=== PATIENT | female | born 1995 | race Caucasian/White ===

== ENCOUNTER 2017-05-24 12:35 | Inpatient (IN) | payer MEDICAID ==
[2017-05-24] MEDS ORDERED: ONDANSETRON 4 MG/2 ML VIAL IVP ONE (13:25)
[2017-05-24] MEDS ORDERED: NS 1,000 ML IV ONE ×3 (13:25→14:36)
[2017-05-24 13:31] LABS: % IMMATURE GRANULYOCYTES 0.5 % (0.0-1.1); ABSOLUTE IMMATURE GRANULOCYTES 0.08 10^3/uL (0.00-0.10); ADD DIFF? NO; ADD MORPH? NO; ADD SCAN? NO; ATYPICAL LYMPHOCYTE FLAG 10 (0-99); FRAGMENT RBC FLAG 20 (0-99); HEMATOCRIT 37.1 % (38.0-47.0); HEMOGLOBIN 11.4 g/dL (12.6-16.3); LEFT SHIFT FLG 0 (0-99); LIPEMIA HEMOLYSIS FLAG 80 (0-99); MEAN CELL HEMOGLOBIN 24.7 pg (27.9-34.1); MEAN CELL HEMOGLOBIN CONCENTR. 30.7 g/dL (32.4-36.7); MEAN CELL VOLUME 80.3 fL (81.5-99.8); MEAN PLATELET VOLUME 12.2 fL (8.7-11.7); PLATELET CLUMPS FLAG 0 (0-99); PLATELET COUNT 444 10^3/uL (150-400); RED BLOOD CELL COUNT 4.62 10^6/uL (4.18-5.33); RED CELL DISTRIBUTION WIDTH 16.2 % (11.5-15.2)
[2017-05-24 13:37] LABS: ANION GAP 27 mEq/L (8-16); CHLORIDE 100 mEq/L (97-110); CREATININE 0.8 mg/dL (0.6-1.0); GLOMERULAR FILTRATION RATE > 60; GLUCOSE 451 mg/dL (70-100); SODIUM 133 mEq/L (134-144)
[2017-05-24 13:45] LABS: CARBON DIOXIDE 6 mEq/l (22-31)
--- NOTE | 2017-05-24 13:48 | EDPHY ---
H & P Time Seen by Provider: 05/24/17 13:12 HPI/ROS: CHIEF COMPLAINT: Nausea and dehydration HISTORY OF PRESENT ILLNESS: This 21-year-old woman presents with nausea and decreased appetite today. She has insulin-dependent diabetes and was doing well until this morning when she felt she had nausea and could only eat a single goldfish cracker. She has some myalgias and feels her bones hurt and decreased oral intake. Symptoms moderate but not associated with diarrhea or abdominal pain. Denies . Worse with oral intake. REVIEW OF SYSTEMS: Eye: no change in vision ENT: no sore throat Cardiac: no chest pain or syncope Pulmonary: no cough or SOB Abdomen: HPI Musculoskeletal: no back pain Skin: no rash Neuro: no headache Constitutional: no fever : no urinary symptoms A comprehensive 10 point review of systems is otherwise negative aside from elements mentioned in the history of present illness. PAST MEDICAL HISTORY: Insulin-dependent diabetes on pump Social history: Primary care provider in [facility] General Appearance: Alert and conversant, cooperative. Eyes: No scleral icterus. ENT, Mouth: Slightly dry mucous membranes Respiratory: Normal respiratory effort, breath sounds equal, lungs are clear to auscultation. Cardiovascular: Regular rate and rhythm. Gastrointestinal: Abdomen is soft and non tender. Neurological: Alert and oriented x3. Normally conversant. Face symmetric, normal movement and sensation in all extremities. Skin: Warm and dry, no rashes. Musculoskeletal: No peripheral edema and no joint swelling. Psychiatric: Not agitated. Emergency Department course/MDM: Normal saline 2 L IV and CBC and chemistries. 1437: Venous pH 7.1, DKA protocol initiated, discussed with hospitalist Dr. Dawson. 1530: Repeat glucose 320, insulin drip ongoing. Smoking Status: Never smoked Constitutional: Initial Vital Signs Temperature (C) 36.8 C 05/24/17 12:40 Heart Rate 104 H 05/24/17 12:40 Respiratory Rate 20 05/24/17 12:40 Blood Pressure 124/68 H 05/24/17 12:40 O2 Sat (%) 97 05/24/17 12:40 O2 Delivery Mode Room Air Allergies/Adverse Reactions: No Known Allergies Allergy (Verified 05/24/17 12:40) Home Medications: Medication Instructions Recorded Insulin Pump, Patient Own 1 ea MISC AD 05/24/17 Norgestimate-Ethinyl Estradiol 1 tab PO HS 05/24/17 [Trinessa Tablet] Sertraline HCl [Zoloft 50mg (*)] 100 mg PO HS 05/24/17 Medical Decision Making Differential Diagnosis: Differential for nausea considered including but not limited to metabolic abnormality, , urinary tract infection, gastroenteritis. Critical Care Time: Critical care time spent by me, Dr. Dodson, exclusively with the care of this patient was 30 minutes, exclusive of PA or WALNUT DEHYDRATOR OPERATOR time and exclusive of separate procedures. The organ system at risk was metabolic and I ordered IV normal saline was station, IV line, plastic discussion with hospitalist to stabilize the patient and prevent worsening of the patient's condition. - Data Points Laboratory Results: Laboratory Results 05/24/17 13:00 05/24/17 13:00 05/24/17 05/24/17 05/24/17 14:20 13:00 13:00 WBC RBC Hgb POC Hgb Hct POC Hct MCV MCH MCHC RDW Plt Count MPV Neut % (Auto) Lymph % (Auto) Cottle % (Auto) Eos % (Auto) Baso % (Auto) Nucleat RBC Rel Count Absolute Neuts (auto) Absolute Lymphs (auto) Absolute Monos (auto) Absolute Eos (auto) Absolute Basos (auto) Absolute Nucleated RBC Immature Gran % Immature Gran # VBG pH 7.10 L* (7.31-7.42) POC Sodium Sodium 133 mEq/L L mEq/L (134-144) POC Potassium Potassium 5.0 mEq/L mEq/L (3.5-5.2) POC Chloride Chloride 100 mEq/L mEq/L (97-110) Carbon Dioxide 6 mEq/l L* mEq/l (22-31) Anion Gap 27 mEq/L H mEq/L (8-16) POC BUN BUN 13 mg/dL mg/dL (7-23) Creatinine 0.8 mg/dL mg/dL (0.6-1.0) POC Creatinine Estimated GFR > 60 Glucose 451 mg/dL H mg/dL (70-100) POC Glucose Calcium 10.0 mg/dL mg/dL (8.5-10.4) Beta HCG, Qual NEGATIVE 05/24/17 05/24/17 13:00 12:54 WBC 15.55 10^3/uL H 10^3/uL (3.80-9.50) RBC 4.62 10^6/uL 10^6/uL (4.18-5.33) Hgb 11.4 g/dL L g/dL (12.6-16.3) POC Hgb 14.3 gm/dL gm/dL (12.6-16.3) Hct 37.1 % L % (38.0-47.0) POC Hct 42 % % (38-47) MCV 80.3 fL L fL (81.5-99.8) MCH 24.7 pg L pg (27.9-34.1) MCHC 30.7 g/dL L g/dL (32.4-36.7) RDW 16.2 % H % (11.5-15.2) Plt Count 444 10^3/uL H 10^3/uL (150-400) MPV 12.2 fL H fL (8.7-11.7) Neut % (Auto) 87.5 % H % (39.3-74.2) Lymph % (Auto) 9.2 % L % (15.0-45.0) Cottle % (Auto) 2.1 % L % (4.5-13.0) Eos % (Auto) 0.0 % L % (0.6-7.6) Baso % (Auto) 0.7 % % (0.3-1.7) Nucleat RBC Rel Count 0.0 % % (0.0-0.2) Absolute Neuts (auto) 13.60 10^3/uL H 10^3/uL (1.70-6.50) Absolute Lymphs (auto) 1.43 10^3/uL 10^3/uL (1.00-3.00) Absolute Monos (auto) 0.33 10^3/uL 10^3/uL (0.30-0.80) Absolute Eos (auto) 0.00 10^3/uL L 10^3/uL (0.03-0.40) Absolute Basos (auto) 0.11 10^3/uL H 10^3/uL (0.02-0.10) Absolute Nucleated RBC 0.00 10^3/uL 10^3/uL (0-0.01) Immature Gran % 0.5 % % (0.0-1.1) Immature Gran # 0.08 10^3/uL 10^3/uL (0.00-0.10) VBG pH POC Sodium 132 mEq/L L mEq/L (134-144) Sodium POC Potassium 4.6 mEq/L mEq/L (3.3-5.0) Potassium POC Chloride 104 mEq/L mEq/L (97-110) Chloride Carbon Dioxide Anion Gap POC BUN 13 mg/dL mg/dL (7-23) BUN Creatinine POC Creatinine 0.6 mg/dL mg/dL (0.6-1.0) Estimated GFR Glucose POC Glucose 420 mg/dL H mg/dL (70-100) Calcium Beta HCG, Qual Medications Given: Insulin Human Regular 100 unit / Miscellaneous Medication 1 ea/ Sodium Chloride 101 mls @ 7 mls/hr IV EDNOW ONE PRN Reason: Protocol Stop: 05/25/17 05:01 Last Admin: 05/24/17 15:02 Dose: 101 mls Discontinued Medications Sodium Chloride (Ns) 1,000 mls @ 0 mls/hr IV EDNOW ONE; Wide Open PRN Reason: Protocol Stop: 05/24/17 13:26 Last Admin: 05/24/17 13:39 Dose: 1,000 mls Sodium Chloride (Ns) 1,000 mls @ 0 mls/hr IV EDNOW ONE; Wide Open PRN Reason: Protocol Stop: 05/24/17 13:26 Last Admin: 05/24/17 13:40 Dose: 1,000 mls Sodium Chloride (Ns) 1,000 mls @ 0 mls/hr IV ONCE ONE; Wide Open PRN Reason: Protocol Stop: 05/24/17 14:37 Last Admin: 05/24/17 14:47 Dose: 1,000 mls Insulin Human Regular (Humulin R) 10 unit IVP EDNOW ONE Stop: 05/24/17 14:37 Last Admin: 05/24/17 14:47 Dose: 10 unit Ondansetron HCl (Zofran) 4 mg IVP EDNOW ONE Stop: 05/24/17 13:26 Last Admin: 05/24/17 13:40 Dose: 4 mg Point of Care Test Results: 05/24/17 12:54 POC Sodium 132 L POC Potassium 4.6 POC Chloride 104 POC BUN 13 POC Creatinine 0.6 POC Glucose 420 H Departure - Departure Disposition: [facility] Acute Clinical Impression: DKA (diabetic ketoacidoses) Qualifiers: Diabetes mellitus type: type 1 Diabetes mellitus complication detail: without coma Qualified Code(s): E10.10 - Type 1 diabetes mellitus with ketoacidosis without coma Condition: Serious
[2017-05-24] MEDS ORDERED: INSULIN REGULAR HUMAN 100 UNIT, COSIGN. REQUIRED 1 EA in NS 100 ML IV ONE (14:36)
[2017-05-24] MEDS ORDERED: INSULIN REGULAR HUMAN 100 UNIT/ML IVP ONE (14:36)
[2017-05-24] MEDS ORDERED: PROMETHAZINE HCL 25 MG/ML INJ IVP PRN (14:56)
[2017-05-24] MEDS ORDERED: ONDANSETRON DISINTEGRATING 4 MG TAB PO PRN (14:56)
[2017-05-24] MEDS ORDERED: ONDANSETRON 4 MG/2 ML VIAL IVP PRN (14:56)
--- NOTE | 2017-05-24 15:28 | GHP ---
[f rep st] HISTORY AND PHYSICAL DATE OF ADMISSION: 05/24/2017 HISTORY OF PRESENT ILLNESS: The patient is a 21-year-old female with type 1 diabetes x8 years, who presents with nausea, vomiting and hypoglycemia. Yesterday she felt well, maybe a bit of a sore thr oat. Her fiancee is a teacher at [employer] and the students have just returned. This morning she had some vomiting, was unable to eat, was hyperglycemic so she sought care. She has an insulin pump. It is relatively new because she had 1 [facility] She says it has been working well and she is not aware of any obvious pr oblems with the tubing or the sensor or the insertion site. It appears that she is well versed in a pump. She says her insulin is about a month old. She denies shortness of breath or cough, sputum. She has nausea and an episode of vomiting but no d iarrhea. No abdominal pain. No urgency frequency, dysuria. No painful areas on her skin. No STD like symptoms. REVIEW OF SYSTEMS: Complete 10-point review of systems conducted and negative except as noted in th e HPI. PAST MEDICAL HISTORY: 1. Type 1 diabetes. 2. Depression. ALLERGIES: No known drug allergies. HOME MEDICATIONS: 1. Humalog insulin by a pump. 2. control. 3. Zoloft. SOCIAL HISTORY: Rare alcohol. No tobacco. Lives in [facility]. FAMILY HISTORY: Reviewed and unremarkable. PHYSICAL EXAMINATION: PRESENTING VITALS: Temp 36.8, blood pressure 124/68, pulse 104, breathing 20 times a minute, 97% on room air. GENERAL: No acute distress. HEENT: Sclerae anicteric. Orophar ynx clear. Mucous membranes moist. NECK. Supple without lymphadenopathy or JVD. LUNGS: Clear to auscultation bilaterally. HEART: S1, S2 without murmurs. ABDOMEN: Soft, nontender, nondistended . LOWER EXTREMITIES: Without edema. Calves are nontender. SKIN: Without rash. NEUROLOGIC: Non focal. LABORATORY: Sodium 133, potassium 5, chloride 100, bicarb 6, BUN 13, creatinine 0.8, glucose 451. Calcium 10. Beta HCG negative. Her anion gap is elevated at 27. Venous pH 7.1. White count 15.5 with a left shift, hematocrit is 37.1, MCV is low at 80, platelets are 444,000. I have discussed the case with Dr. Frank Dodson. ASSESSMENT/PLAN: This is a 21-year-old female with diabetic ketoacidosis of uncertain trigger. 1. Diabetic ketoacidosis. We will start her on insulin drip. We will have her hold her insulin pu mp and we will follow her chem 7 q.4. 2. Trigger for diabetic ketoacidosis. I suspect viral gastroenteritis although it is not entirely clear. Next would be pump malfunction. Although this does not appear to obviously be the case. We will suspend her pump, provide her with IV insulin. When the gap is closed, we will restart her on insulin pump and overlap them by an hour. 3. Metabolic acidosis with an anion gap. This is attributable to diabetic ketoacidosis. 4. Microcytic anemia. I will order iron studies in the morning. 5. Diabetes. She has not had an A1c checked in a while so I will order that in the morning. It so unds like she has not followed up with an director recreation of late. I will encourage her to do so. DISPOSITION: ICU inpatient. PROPHYLAXIS: Lovenox. /[id number]/MODL
[2017-05-24 16:54] LABS: % SATURATION 8 % (20-55); TOTAL IRON BINDING CAPACITY 498 ug/dL (260-490)
[2017-05-24] MEDS ORDERED: D5W 1,000 ML IV SCH (18:16)
[2017-05-24] MEDS ORDERED: INSULIN REGULAR HUMAN 100 UNIT in NS 100 ML IV SCH (18:16)
[2017-05-24] MEDS ORDERED: D50W 25 GM/50 ML SYR IVP PRN ×2 (18:16→23:36)
[2017-05-24] MEDS ORDERED: INSULIN REGULAR HUMAN 100 UNIT/ML IVP PRN (18:16)
[2017-05-24] MEDS ORDERED: PROTOCOL POTASSIUM 1 DOSE MISC PRN (18:18)
[2017-05-24] MEDS ORDERED: PROTOCOL MAGNESIUM 1 DOSE IV PRN (18:18)
[2017-05-24 19:00] LABS: ANION GAP 21 mEq/L (8-16); CALCIUM 8.4 mg/dL (8.5-10.4); CHLORIDE 110 mEq/L (97-110); CREATININE 0.7 mg/dL (0.6-1.0); GLOMERULAR FILTRATION RATE > 60; GLUCOSE 173 mg/dL (70-100); POTASSIUM 4.7 mEq/L (3.5-5.2); SODIUM 139 mEq/L (134-144)
[2017-05-24 19:02] LABS: CARBON DIOXIDE 8 mEq/l (22-31)
[2017-05-24] MEDS: NORGESTIMATE ETHINYL ESTRADIOL PO SCH (20:35)
[2017-05-24] MEDS: SERTRALINE HCL 50 MG TAB PO SCH (20:36)
[2017-05-24 22:49] LABS: ANION GAP 10 mEq/L (8-16); CALCIUM 8.4 mg/dL (8.5-10.4); CARBON DIOXIDE 15 mEq/l (22-31); CHLORIDE 111 mEq/L (97-110); CREATININE 0.8 mg/dL (0.6-1.0); GLOMERULAR FILTRATION RATE > 60; GLUCOSE 210 mg/dL (70-100); POTASSIUM 4.2 mEq/L (3.5-5.2); SODIUM 136 mEq/L (134-144)
[2017-05-24] MEDS: NS 1,000 ML IV SCH (23:03)
[2017-05-24] MEDS ORDERED: D10W 250 ML PRN HYPOGLYCEMIA IV (23:36)
[2017-05-25] MEDS: ACETAMINOPHEN 325 MG TAB PO PRN ×2 (02:00→21:37)
[2017-05-25 04:55] LABS: CALCIUM 8.8 mg/dL (8.5-10.4); CHLORIDE 114 mEq/L (97-110); CREATININE 0.8 mg/dL (0.6-1.0); GLOMERULAR FILTRATION RATE > 60; POTASSIUM 3.7 mEq/L (3.5-5.2)
[2017-05-25 05:08] LABS: ANION GAP 10 mEq/L (8-16); CARBON DIOXIDE 14 mEq/l (22-31); GLUCOSE 127 mg/dL (70-100); SODIUM 138 mEq/L (134-144)
[2017-05-25 06:49] LABS: ANION GAP 5 mEq/L (8-16); CALCIUM 8.6 mg/dL (8.5-10.4); CARBON DIOXIDE 15 mEq/l (22-31); CHLORIDE 116 mEq/L (97-110); CREATININE 0.7 mg/dL (0.6-1.0); GLOMERULAR FILTRATION RATE > 60; GLUCOSE 65 mg/dL (70-100); MAGNESIUM 1.7 mg/dL (1.6-2.3); POTASSIUM 3.7 mEq/L (3.5-5.2); SODIUM 136 mEq/L (134-144)
[2017-05-25] MEDS ORDERED: MAGNESIUM SULF 1 GM/DEXTROSE 100 ML IV ONE (07:31)
[2017-05-25] MEDS: POTASSIUM Cl (KCl) 100 ML IV SCH ×2 (07:38→10:13)
[2017-05-25] MEDS: ENOXAPARIN 40 MG/0.4 ML SYR SC SCH (07:56)
[2017-05-25] MEDS ORDERED: INSULIN LISPRO 100 UNIT/ML SC ONE (08:14)
[2017-05-25] MEDS ORDERED: NON-FORMULARY NEW DRUG (Insulin Pump, Patient Own 1 EA) MISC SCH (08:15)
[2017-05-25] MEDS ORDERED: INSULIN PUMP MISC SCH (08:15)
[2017-05-25] MEDS: INSULIN LISPRO 100 UNIT/ML SC SCH ×3 (08:29→18:44)
[2017-05-25 08:55] LABS: HEMOGLOBIN A1C 10.9 % (4.0-6.0)
[2017-05-25 10:30] LABS: CALCIUM 8.2 mg/dL (8.5-10.4); CREATININE 0.6 mg/dL (0.6-1.0); GLOMERULAR FILTRATION RATE > 60; GLUCOSE 221 mg/dL (70-100)
[2017-05-25 10:44] LABS: ANION GAP 11 mEq/L (8-16); CARBON DIOXIDE 12 mEq/l (22-31); CHLORIDE 110 mEq/L (97-110); SODIUM 133 mEq/L (134-144)
--- NOTE | 2017-05-25 12:37 | HOSPPROG ---
Hospitalist Progress Note Assessment/Plan: 22 yo female from [place] visiting her fiance admitted for DKA. Doing better symptomatically and wants discharge today. We saw her during team rounds and the plan was to discharge if her repeat 10 am labs look better #DKA with acidosis #Type I DM #Likely Gastroenteritis #Anemai, microcytic. w/u pending Plan: Her repeat labs are c/w a CO2 of 12 which indicates worsening acidosis. I spoke with the nurse that given the acidosis and that her glucose is elevated in the 200's, I dont think that discharge is her best option. We will redraw a BMP this afternoon and make a decision. Will restart IVF. She has restarted her insulin pump this morning and has increased the amount of insulin that she has been providing herself. Her A1C is around 11. Total CCT 33 minutes including discussion/coordination with nurse. Subjective: Feels better and wants to go home. Objective: Vital Signs Temp Pulse Resp BP Pulse Ox 37.4 C 93 24 H 127/79 H 99 05/25/17 04:00 05/25/17 10:00 05/25/17 10:00 05/25/17 10:00 05/25/17 10:00 Laboratory Results 05/25/17 10:00 05/24/17 05/25/17 05/26/17 05:59 05:59 05:59 Intake Total 2597 Balance 2597 - Physical Exam Constitutional: no apparent distress, appears nourished, not in pain Eyes: PERRL, anicteric sclera, EOMI Ears, Nose, Mouth, Throat: moist mucous membranes, hearing normal, ears appear normal, no oral mucosal ulcers Cardiovascular: regular rate and rhythym, no murmur, rub, or gallop Respiratory: no respiratory distress Gastrointestinal: normoactive bowel sounds, soft, non-tender abdomen, no palpable masses Skin: warm Neurologic: AAOx3 Psychiatric: interacting appropriately, not anxious, not encephalopathic ICD10 Worksheet Patient Problems: Problems Problem Status Onset DKA (diabetic ketoacidoses) Acute
[2017-05-25 14:41] LABS: ANION GAP 12 mEq/L (8-16); CALCIUM 8.5 mg/dL (8.5-10.4); CARBON DIOXIDE 15 mEq/l (22-31); CHLORIDE 110 mEq/L (97-110); CREATININE 0.6 mg/dL (0.6-1.0); GLOMERULAR FILTRATION RATE > 60; GLUCOSE 197 mg/dL (70-100); POTASSIUM 4.3 mEq/L (3.5-5.2); SODIUM 137 mEq/L (134-144)
[2017-05-25] MEDS: NS 1,000 ML IV SCH ×2 (14:52→21:52)
[2017-05-25 21:09] LABS: POTASSIUM 3.6 mEq/L (3.5-5.2)
[2017-05-25] MEDS: SERTRALINE HCL 50 MG TAB PO SCH (21:29)
[2017-05-25] MEDS: NORGESTIMATE ETHINYL ESTRADIOL PO SCH (21:55)
[2017-05-26 08:42] VITALS: RESP 16
[2017-05-26] MEDS: INSULIN LISPRO 100 UNIT/ML SC SCH ×2 (09:14→12:15)
[2017-05-26] MEDS: ACETAMINOPHEN 325 MG TAB PO PRN (09:22)
[2017-05-26] MEDS: ENOXAPARIN 40 MG/0.4 ML SYR SC SCH (10:10)
[2017-05-26] MEDS: MAGNESIUM SULF 1 GM/DEXTROSE 100 ML IV ONE ×2 (10:14→15:52)
[2017-05-26 15:29] LABS: % IMMATURE GRANULYOCYTES 0.2 % (0.0-1.1); ABSOLUTE IMMATURE GRANULOCYTES 0.02 10^3/uL (0.00-0.10); ADD DIFF? NO; ADD MORPH? NO; ADD SCAN? NO; ATYPICAL LYMPHOCYTE FLAG 10 (0-99); FRAGMENT RBC FLAG 20 (0-99); HEMATOCRIT 30.3 % (38.0-47.0); HEMOGLOBIN 9.6 g/dL (12.6-16.3); LEFT SHIFT FLG 0 (0-99); LIPEMIA HEMOLYSIS FLAG 80 (0-99); MEAN CELL HEMOGLOBIN 24.8 pg (27.9-34.1); MEAN CELL HEMOGLOBIN CONCENTR. 31.7 g/dL (32.4-36.7); MEAN CELL VOLUME 78.3 fL (81.5-99.8); MEAN PLATELET VOLUME 11.9 fL (8.7-11.7); PLATELET CLUMPS FLAG 20 (0-99); PLATELET COUNT 336 10^3/uL (150-400); RED BLOOD CELL COUNT 3.87 10^6/uL (4.18-5.33); RED CELL DISTRIBUTION WIDTH 17.1 % (11.5-15.2)
[2017-05-26 15:43] LABS: ANION GAP 11 mEq/L (8-16); CALCIUM 8.8 mg/dL (8.5-10.4); CARBON DIOXIDE 19 mEq/l (22-31); CHLORIDE 108 mEq/L (97-110); CREATININE 0.6 mg/dL (0.6-1.0); GLOMERULAR FILTRATION RATE > 60; GLUCOSE 100 mg/dL (70-100); POTASSIUM 3.6 mEq/L (3.5-5.2); SODIUM 138 mEq/L (134-144)
[2017-05-26 15:52] VITALS: BP 140/95; PULSE 85; TEMP 98.3; O2SAT 97
--- NOTE | 2017-05-26 17:06 | GDS ---
[f rep st] DISCHARGE SUMMARY KNOWN ACUTE DIAGNOSES: 1. Acute diabetic ketoacidosis. 2. Metabolic acidosis with anion gap contributed to ketoacidosis. 3. Microcytic anemia. 4. Diabetes mellitus type 1 x10 years. CONSULTATIONS: None. PROCEDURES: None. HISTORY: This is a 22-year-old whose insulin may have gone bad due to excessive heat. She has an in sulin pump and was traveling from [place] to [place] to see her boyfriend. She developed nausea, vomiting, and was noted to be in DKA with a ketoacidosis on presentation. She was treated with IV f luids and IV insulin. She had an initial venous lactate of 7 and an anion gap of 27. She was tachyp neic, tachycardic, but never hypotensive. She responded well to insulin, fluids, and as her acidosis resolved she again resumed the use of her insulin pump, which she has had for 4 years. At the time of discharge, she was resolving or acidosis. Her ion gap had closed. The venous lactate was 3.5, an d her hemoglobin was 9.6. She was afebrile. DISCHARGE MEDICATIONS: Will be the same as her admission medications as follows: An insulin pump wh ich she uses between 24 and 29 units a day, Zoloft 100 mg h.s., control pills taken once each e vening. PLAN: She is released to her own care on an ADA diet and use of her insulin pump, which she understa nds quite well. She has been instructed if she has further difficulties to come to the emergency dep artment as she is not a resident of [place] and will not be staying here long. TIME: This discharge required 40 minutes, greater than 50% to corrections counselor and coordinate care. I corby burgess reviewed the laboratories with the patient and explained the matter to her. /[id number]/MODL
--- NOTE | 2017-05-29 17:05 | ASMTCMCOM ---
CM Note CM Note Notes: No needs identified, anticipate alecia dc home w/support of fiance when medically stable. CM available for any changes. Date Signed: 05/26/2017 03:19 PM Electronically Signed By:Jacinta Olivarez
--- NOTE | 2017-05-29 17:05 | ASMTCMCOM ---
CM Note CM Note Notes: Coworker received call from Jasper from [facility] regarding pt and asking for CM. CM asked pt if she knew what [employer] was and pt did not. Date Signed: 05/26/2017 04:17 PM Electronically Signed By:Jacinta Olivarez
--- NOTE | 2017-05-29 17:06 | ASDISCHSUM ---
Discharge Information Plan Status:Home with Home Health Medically Cleared to Leave:05/26/2017 Discharge Date:05/26/2017 04:41 PM CM D/C Disposition:Home, Routine, Self-Care ADT D/C Disposition:Home, Routine, Self-Care Projected Discharge Date:05/26/2017 12:00 AM Transportation at D/C: Discharge Delay Reason: Follow-Up Date:05/26/2017 12:00 AM Discharge Slot: Final Diagnosis: Placement Information Patient Contact Information Contact Name:MARCUS Relationship:Other Address: Work Phone: City: [facility] Phone: State/Realitycheck Code: Email: Financial Information Financial Class: Primary Plan Desc:EVERARDO ALVARES Primary Plan Number:[id number] Secondary Plan Desc: Secondary Plan Number: Assessment Information [facility] CM Progress Note CM Note CM Note Notes: No needs identified, anticipate [facility] w/support of colby when medically stable. CM available for any changes. Date Signed: 05/26/2017 03:19 PM Electronically Signed By:Jacinta Olivarez [facility] CM Progress Note CM Note CM Note Notes: Coworker received call from Jasper from [email or web address] regarding pt and asking for CM. CM asked pt if she knew what [email or web address] was and pt did not. Date Signed: 05/26/2017 04:17 PM Electronically Signed By:Jacinta Olivarez Intervention Information
== END 2017-05-26 16:41 | disposition home or self-care (01) | DRG 639 ==
LOC: F2N 17:37 → F3E 05-25 17:15
PROVIDERS: ADMIT Internal Medicine; ATTEND Internal Medicine
DX: E13.10 Other specified diabetes mellitus with ketoacidosis without coma (principal); Z79.4 Long term (current) use of insulin; Z96.41 Presence of insulin pump (external) (internal); D50.9 Iron deficiency anemia, unspecified
CPT/HCPCS: 82947-QW; 96374; J1650; J1815; J2405; J3475

== ENCOUNTER 2018-02-17 23:22 | Observation (INO) | payer SELFPAY ==
[2018-02-17] MEDS ORDERED: NS 1,000 ML IV ONE (23:50)
[2018-02-17 23:54] LABS: PLATELET COUNT 491 10^3/uL (150-400)
[2018-02-18] MEDS ORDERED: D50W 25 GM/50 ML SYR IVP PRN ×2 (00:23→02:30)
[2018-02-18] MEDS ORDERED: INSULIN REGULAR HUMAN 100 UNIT, COSIGN. REQUIRED 1 EA in NS 100 ML IV ONE (00:23)
[2018-02-18] MEDS ORDERED: D10W 1,000 ML IV ONE (00:23)
--- NOTE | 2018-02-18 00:42 | EDPHY ---
H & P Stated Complaint: ? DKA Time Seen by Provider: 02/18/18 00:17 HPI/ROS: HPI The patient presents with elevated blood glucose at home. Last check was over 600 on her home glucometer just before arriving here. For the last 1 week, blood glucoses have been in the 300s. Then today she awoke with polyuria, urinating twice per hour. She went to work, and when she returned home checked her blood sugar and it was elevated, thus she came to the emergency department. She has been feeling generally dizzy and nauseated over the last few days. Her diet has remained unchanged. She has had increased thirst. She has not had a fever, chest pain, cough, runny nose, abdominal pain. REVIEW OF SYSTEMS Constitutional: No fever, no chills. Eyes: No discharge. ENT: No sore throat. Cardiovascular: No chest pain, no palpitations. Respiratory: No cough, no shortness of breath. Gastrointestinal: No abdominal pain, no vomiting. Genitourinary: No hematuria. Musculoskeletal: No back pain. Skin: No rashes. Neurological: No headache. PMHx: Diabetes on insulin, episode of DKA in May of 2017 Soc Hx: From [place] and has her primary care doctor there. She has not followed by an optimization engineer PHYSICAL General Appearance: Alert, no distress Eyes: Pupils equal and round no pallor or injection ENT, Mouth: Mucous membranes slightly dry Respiratory: There are no retractions, lungs are clear to auscultation Cardiovascular: Regular rate and rhythm Gastrointestinal: Abdomen is soft and non-tender, no masses, bowel sounds normal Neurological: A&O, moves all extremities Skin: Warm and dry, no rashes Musculoskeletal: Neck is supple non tender Extremities: symmetrical, full range of motion Psychiatric: Patient is oriented X 3, there is no agitation Source: Patient Exam Limitations: No limitations - Personal History LMP (Females 10-55): 1-7 Days Ago Current Tetanus/Diphtheria Vaccine: Yes Current Tetanus Diphtheria and Acellular Pertussis (TDAP): Yes Tetanus Vaccine Date: 2014 - Medical/Surgical History Hx Asthma: No Hx Chronic Respiratory Disease: No Hx Diabetes: Yes Hx Cardiac Disease: No Hx Renal Disease: No Hx Cirrhosis: No Hx Alcoholism: No Hx HIV/AIDS: No Hx Splenectomy or Spleen Trauma: No Other PMH: PDA 11months of age, Anxiety, IDDM-on pump. - Social History Smoking Status: Never smoked Constitutional: Initial Vital Signs Temperature (C) 36.6 C 02/17/18 23:24 Heart Rate 121 H 02/17/18 23:24 Respiratory Rate 16 02/17/18 23:24 Blood Pressure 121/90 H 02/17/18 23:24 O2 Sat (%) 98 02/17/18 23:24 O2 Delivery Mode Room Air Allergies/Adverse Reactions: No Known Allergies Allergy (Verified 05/24/17 12:40) Home Medications: Medication Instructions Recorded Insulin Pump, Patient Own 1 ea MISC AD 05/24/17 Norgestimate-Ethinyl Estradiol 1 tab PO HS 05/24/17 [Trinessa Tablet] Sertraline HCl [Zoloft 50mg (*)] 100 mg PO HS 05/24/17 Medical Decision Making Differential Diagnosis: This is a 22-year-old female with type 1 diabetes using an insulin pump who presents with elevated blood glucose to greater than 600 at home tonight with polyuria, dizziness, nausea. She suspects that her insulin pump is not delivering enough insulin. Systemically, she denies any complaints to suggest infection, ACS. IV line was established, labs were checked here which do indeed reveal DKA with anion gap of 23 and CO2 of 9. She was started on the DKA protocol with insulin drip. I consulted with the hospitalist Dr. Rice who will admit her to the ICU. Critical Care Time: CRITICAL CARE Critical care time spent by me, Dr. Ortiz, exclusively with this patient was 30 minutes, exclusive of PA time and exclusive of procedures. The organ system at risk was cardiac, neuro and I gave IV fluids, started insulin drip, emergently transfer the patient to the ICU to prevent worsening of the patients condition. - Data Points Laboratory Results: Laboratory Results 02/17/18 23:39 02/18/18 01:04 02/18/18 02/18/18 02/18/18 01:04 01:04 00:30 WBC RBC Hgb Hct MCV MCH MCHC RDW Plt Count MPV Neut % (Auto) Lymph % (Auto) Walker % (Auto) Eos % (Auto) Baso % (Auto) Nucleat RBC Rel Count Absolute Neuts (auto) Absolute Lymphs (auto) Absolute Monos (auto) Absolute Eos (auto) Absolute Basos (auto) Absolute Nucleated RBC Immature Gran % Immature Gran # Puncture Site NONE GIVEN Patient Temperature 37.0 DEGREES DEGREES VBG pH 7.29 L (7.31-7.42) VBG HCO3 14 mEQ/L L mEQ/L (22-26) VBG Total CO2 15 mEq/L L D mEq/L (21-27) VBG O2 Saturation 91 % H % (65-75) VBG Base Excess -11.2 mEq/L L mEq/L (-2.5-2.5) Mixed VBG pCO2 31 mmHg L mmHg (40-44) Mixed VBG pO2 70 mmHg H mmHg (35-40) Turbidity Sodium 137 mEq/L mEq/L (135-145) Potassium 4.5 mEq/L mEq/L (3.3-5.0) Chloride 107 mEq/L mEq/L (97-110) Carbon Dioxide Pending Anion Gap 14 mEq/L mEq/L (8-16) BUN 10 mg/dL mg/dL (7-23) Creatinine 0.6 mg/dL mg/dL (0.6-1.0) Estimated GFR > 60 Glucose 202 mg/dL H mg/dL (70-100) POC Glucose Calcium 8.5 mg/dL mg/dL (8.5-10.4) Phosphorus 2.2 mg/dL L mg/dL (2.5-4.5) Magnesium 1.6 mg/dL mg/dL (1.6-2.3) Total Bilirubin 1.1 mg/dL mg/dL (0.1-1.4) Conjugated Bilirubin 0.3 mg/dL mg/dL (0.0-0.5) Unconjugated Bilirubin 0.8 mg/dL mg/dL (0.0-1.1) AST 21 IU/L IU/L (14-46) ALT 29 IU/L IU/L (9-52) Alkaline Phosphatase 91 IU/L IU/L (38-126) Total Protein 6.3 g/dL g/dL (6.3-8.2) Albumin 3.1 g/dL L g/dL (3.5-5.0) Beta-Hydroxybutyrate Pending Beta HCG, Qual Specimen Hemolysis Urine Color PALE YELLOW Urine Appearance CLEAR Urine pH 5.0 (5.0-7.5) Ur Specific Cordell 1.024 (1.002-1.030) Urine Protein NEGATIVE (NEGATIVE) Urine Ketones 2+ H (NEGATIVE) Urine Blood 1+ H (NEGATIVE) Urine Nitrate NEGATIVE (NEGATIVE) Urine Bilirubin NEGATIVE (NEGATIVE) Urine Urobilinogen NEGATIVE EU EU (0.2-1.0) Ur Leukocyte Esterase NEGATIVE (NEGATIVE) Urine RBC 1-3 /hpf /hpf (0-3) Urine WBC 1-3 /hpf /hpf (0-3) Ur Epithelial Cells TRACE /lpf /lpf (NONE-1+) Urine Mucus TRACE /lpf /lpf (NONE-1+) Urine Glucose 3+ H (NEGATIVE) 02/17/18 02/17/18 02/17/18 23:55 23:39 23:39 WBC RBC Hgb Hct MCV MCH MCHC RDW Plt Count MPV Neut % (Auto) Lymph % (Auto) Walker % (Auto) Eos % (Auto) Baso % (Auto) Nucleat RBC Rel Count Absolute Neuts (auto) Absolute Lymphs (auto) Absolute Monos (auto) Absolute Eos (auto) Absolute Basos (auto) Absolute Nucleated RBC Immature Gran % Immature Gran # Puncture Site NONE GIVEN Patient Temperature 37.0 DEGREES DEGREES VBG pH 7.26 L (7.31-7.42) VBG HCO3 12 mEQ/L L mEQ/L (22-26) VBG Total CO2 12 mEq/L L mEq/L (21-27) VBG O2 Saturation 91 % H % (65-75) VBG Base Excess -14.1 mEq/L L mEq/L (-2.5-2.5) Mixed VBG pCO2 27 mmHg L mmHg (40-44) Mixed VBG pO2 72 mmHg H mmHg (35-40) Turbidity < 20 Sodium 134 mEq/L L mEq/L (135-145) Potassium 4.4 mEq/L mEq/L (3.3-5.0) Chloride 102 mEq/L mEq/L (97-110) Carbon Dioxide 9 mEq/l L* mEq/l (22-31) Anion Gap 23 mEq/L H mEq/L (8-16) BUN 13 mg/dL mg/dL (7-23) Creatinine 0.7 mg/dL mg/dL (0.6-1.0) Estimated GFR > 60 Glucose 303 mg/dL H mg/dL (70-100) POC Glucose Calcium 9.8 mg/dL mg/dL (8.5-10.4) Phosphorus Magnesium Total Bilirubin Conjugated Bilirubin Unconjugated Bilirubin AST ALT Alkaline Phosphatase Total Protein Albumin Beta-Hydroxybutyrate 3.53 mmol/L H mmol/L (0.02-0.27) Beta HCG, Qual NEGATIVE Specimen Hemolysis 35 Urine Color Urine Appearance Urine pH Ur Specific Cordell Urine Protein Urine Ketones Urine Blood Urine Nitrate Urine Bilirubin Urine Urobilinogen Ur Leukocyte Esterase Urine RBC Urine WBC Ur Epithelial Cells Urine Mucus Urine Glucose 02/17/18 02/17/18 23:39 23:32 WBC 12.01 10^3/uL H 10^3/uL (3.80-9.50) RBC 4.61 10^6/uL 10^6/uL (4.18-5.33) Hgb 11.3 g/dL L g/dL (12.6-16.3) Hct 36.9 % L % (38.0-47.0) MCV 80.0 fL L fL (81.5-99.8) MCH 24.5 pg L pg (27.9-34.1) MCHC 30.6 g/dL L g/dL (32.4-36.7) RDW 17.7 % H % (11.5-15.2) Plt Count 491 10^3/uL H 10^3/uL (150-400) MPV 11.6 fL fL (8.7-11.7) Neut % (Auto) 72.5 % % (39.3-74.2) Lymph % (Auto) 19.1 % % (15.0-45.0) Walker % (Auto) 7.2 % % (4.5-13.0) Eos % (Auto) 0.1 % L % (0.6-7.6) Baso % (Auto) 0.8 % % (0.3-1.7) Nucleat RBC Rel Count 0.0 % % (0.0-0.2) Absolute Neuts (auto) 8.71 10^3/uL H 10^3/uL (1.70-6.50) Absolute Lymphs (auto) 2.29 10^3/uL 10^3/uL (1.00-3.00) Absolute Monos (auto) 0.86 10^3/uL H 10^3/uL (0.30-0.80) Absolute Eos (auto) 0.01 10^3/uL L 10^3/uL (0.03-0.40) Absolute Basos (auto) 0.10 10^3/uL 10^3/uL (0.02-0.10) Absolute Nucleated RBC 0.00 10^3/uL 10^3/uL (0-0.01) Immature Gran % 0.3 % % (0.0-1.1) Immature Gran # 0.04 10^3/uL 10^3/uL (0.00-0.10) Puncture Site Patient Temperature VBG pH VBG HCO3 VBG Total CO2 VBG O2 Saturation VBG Base Excess Mixed VBG pCO2 Mixed VBG pO2 Turbidity Sodium Potassium Chloride Carbon Dioxide Anion Gap BUN Creatinine Estimated GFR Glucose POC Glucose 324 mg/dL H mg/dL (70-100) Calcium Phosphorus Magnesium Total Bilirubin Conjugated Bilirubin Unconjugated Bilirubin AST ALT Alkaline Phosphatase Total Protein Albumin Beta-Hydroxybutyrate Beta HCG, Qual Specimen Hemolysis Urine Color Urine Appearance Urine pH Ur Specific Cordell Urine Protein Urine Ketones Urine Blood Urine Nitrate Urine Bilirubin Urine Urobilinogen Ur Leukocyte Esterase Urine RBC Urine WBC Ur Epithelial Cells Urine Mucus Urine Glucose Medications Given: Sodium Chloride (Ns) 1,000 mls @ 1,000 mls/hr IV EDNOW ONE PRN Reason: Protocol Stop: 02/18/18 01:49 Last Admin: 02/17/18 23:57 Dose: 1,000 mls Discontinued Medications Sodium Chloride (Ns) 1,000 mls @ 1,000 mls/hr IV EDNOW ONE PRN Reason: Protocol Stop: 02/18/18 00:49 Last Admin: 02/17/18 23:57 Dose: 1,000 mls Point of Care Test Results: Chemistry 02/17/18 23:32 POC Glucose 324 mg/dL H mg/dL (70-100) Departure - Departure Disposition: [facility] Acute Clinical Impression: DKA (diabetic ketoacidoses) Qualifiers: Diabetes mellitus type: type 1 Diabetes mellitus complication detail: without coma Qualified Code(s): E10.10 - Type 1 diabetes mellitus with ketoacidosis without coma Condition: Critical
[2018-02-18] MEDS ORDERED: NS 1,000 ML IV ONE (00:50)
[2018-02-18] MEDS ORDERED: POTASSIUM Cl (KCl) 100 ML IV ONE (01:06)
[2018-02-18] MEDS ORDERED: PROMETHAZINE HCL 25 MG/ML INJ IVP PRN (01:22)
[2018-02-18] MEDS ORDERED: diphenhydrAMINE 25 MG CAP PO PRN (01:22)
[2018-02-18] MEDS ORDERED: LORazepam 0.5 MG TAB PO PRN (01:22)
[2018-02-18] MEDS ORDERED: ONDANSETRON 4 MG/2 ML VIAL IVP PRN (01:22)
[2018-02-18] MEDS ORDERED: ACETAMINOPHEN 325 MG TAB PO PRN (01:22)
--- NOTE | 2018-02-18 02:24 | PDGENHP ---
History and Physical - Chief Complaint High blood sugars - History of Present Illness Source-patient provides history and appears reliable. EMR was reviewed and case discussed with ED provider. HPI-this is a pleasant 22-year-old female with past medical history significant for type 1 diabetes are treated with insulin pump, anxiety who presents emergency department today with complaints of elevated blood sugars. Patient states that since her discharge in May she has continued to have elevated blood sugars and more recently in the last several days she has noted increased thirst, today polyuria and polyphagia. Today patient reports that she has been having to urinate twice hourly. She also reports some lightheadedness with positional changes. Patient reports some nausea but no vomiting. She denies any fevers or chills. No runny nose sore throat cough abdominal pain diarrhea or dysuria. Patient states that she has not yet established care with a local pharmacy informatics specialist as she has [id number] insurance. Patient has not made any adjustments to her insulin basal rate or bolus dosing. Currently patient pump settings of a basal rate of 1.175 units/hour and a correction factor of 1:40 with a 1:6 correction for carb ratio. Patient notes however that she has had some difficulties with adjustments for bolus dosing. Patient did note that she has not been able to follow up with endocrinology due to some insurance issues and that she also states that its "a lot of math." Patient was admitted on for DKA as a result of on her insulin being outside of refrigeration and likely inactive. She has not had any additional hospitalizations since that time. Patient has had elevated blood sugars in the 300 region. This evening when patient returned home she checked her blood sugars and found that her sugars were in the 6 100s prompting her to come to the emergency department for evaluation. History Information - Allergies/Home Medication List Allergies/Adverse Reactions: No Known Allergies Allergy (Verified 05/24/17 12:40) Home Medications: Insulin Pump, Patient Own 1 ea MISC AD 05/24/17 [Last Taken 05/24/17] Norgestimate-Ethinyl Estradiol [Trinessa Tablet] 1 tab PO HS 05/24/17 [Last Taken 05/23/17] Sertraline HCl [Zoloft 50mg (*)] 100 mg PO HS 05/24/17 [Last Taken 05/23/17] I have personally reviewed and updated: family history, medical history, social history, surgical history - Past Medical History diabetes type 1 Additional medical history: Anxiety - Surgical History Additional surgical history: PDA repair 11 months old - Family History Additional family history: Grandfather with MS - Social History Smoking Status: Never smoked Alcohol Use: None Drug Use: None Additional social history: 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 She lives with her fiance. Patient recently Relocated from [place] since May 2017. Review of Systems Review of Systems: ROS: 10pt was reviewed & negative except for what was stated in HPI & below Constitutional: Reports: no symptoms. Denies: chills, fever EENMT: Reports: no symptoms Cardiac: Reports: no symptoms Respiratory: Reports: other (Patient reports some shortness of air.) Gastrointestinal: Reports: nausea. Denies: vomitting, diarrhea Genitourinary: Reports: no symptoms Muscolosketal: Reports: no symptoms Skin: Reports: no symptoms Neurological: Reports: anxiety (Controlled with medications.), other (Patient reports some lightheadedness with position.) Hematologic/Lymphatic: Reports: no symptoms Immunologic/Allergy: Reports: other (Polyuria, polydipsia, polyphagia as noted per HPI.) Physical Exam Physical Exam: Selected Entries 02/17/18 02/18/18 23:24 00:54 Blood Pressure Automatic Automatic Method Heart Rate 121 H 97 Respiratory 16 16 Rate O2 Sat (%) 98 98 Temperature (C) 36.6 C Blood Pressure 121/90 H 105/59 L Mean Arterial 100 74 Pressure (MAP) O2 Delivery Room Air Room Air Mode Constitutional: no apparent distress, appears nourished, not in pain, other ( NAD. Pleasant young adult female sitting up in bed.) Eyes: PERRL, anicteric sclera, EOMI, No scleral injection Ears, Nose, Mouth, Throat: moist mucous membranes, other (No nasal discharge), No poor dentition Cardiovascular: regular rate and rhythym, no murmur, rub, or gallop, No systolic murmur, No edema Peripheral Pulses: 2+: dorsalis-pedis (R), dorsalis-pedis (L) Respiratory: no respiratory distress, no rales or rhonchi, clear to auscultation , No respiratory distress Gastrointestinal: normoactive bowel sounds, soft, non-tender abdomen, no palpable masses, No distension Genitourinary: no bladder tenderness, No [place] in urethra Skin: warm, normal color, no rashes or abrasions, No rash Musculoskeletal: full muscle strength, no muscle tenderness, other (Moves all extremities. Sitting up.) Neurologic: AAOx3, sensation intact bilaterally, other (Grossly nonfocal exam. Moves all extremities.), No facial droop Psychiatric: interacting appropriately, not anxious, not encephalopathic, thought process linear Lab Data & Imaging Review 02/17/18 23:39 02/18/18 01:04 WBC 12.01 10^3/uL (3.80-9.50) H 02/17/18 23:39 RBC 4.61 10^6/uL (4.18-5.33) 02/17/18 23:39 Hgb 11.3 g/dL (12.6-16.3) L 02/17/18 23:39 Hct 36.9 % (38.0-47.0) L 02/17/18 23:39 MCV 80.0 fL (81.5-99.8) L 02/17/18 23:39 MCH 24.5 pg (27.9-34.1) L 02/17/18 23:39 MCHC 30.6 g/dL (32.4-36.7) L 02/17/18 23:39 RDW 17.7 % (11.5-15.2) H 02/17/18 23:39 Plt Count 491 10^3/uL (150-400) H 02/17/18 23:39 MPV 11.6 fL (8.7-11.7) 02/17/18 23:39 Neut % (Auto) 72.5 % (39.3-74.2) 02/17/18 23:39 Lymph % (Auto) 19.1 % (15.0-45.0) 02/17/18 23:39 Bee % (Auto) 7.2 % (4.5-13.0) 02/17/18 23:39 Eos % (Auto) 0.1 % (0.6-7.6) L 02/17/18 23:39 Baso % (Auto) 0.8 % (0.3-1.7) 02/17/18 23:39 Nucleat RBC Rel Count 0.0 % (0.0-0.2) 02/17/18 23:39 Absolute Neuts (auto) 8.71 10^3/uL (1.70-6.50) H 02/17/18 23:39 Absolute Lymphs (auto) 2.29 10^3/uL (1.00-3.00) 02/17/18 23:39 Absolute Monos (auto) 0.86 10^3/uL (0.30-0.80) H 02/17/18 23:39 Absolute Eos (auto) 0.01 10^3/uL (0.03-0.40) L 02/17/18 23:39 Absolute Basos (auto) 0.10 10^3/uL (0.02-0.10) 02/17/18 23:39 Absolute Nucleated RBC 0.00 10^3/uL (0-0.01) 02/17/18 23:39 Immature Gran % 0.3 % (0.0-1.1) 02/17/18 23:39 Immature Gran # 0.04 10^3/uL (0.00-0.10) 02/17/18 23:39 Puncture Site NONE GIVEN 02/18/18 01:04 Patient Temperature 37.0 DEGREES 02/18/18 01:04 VBG pH 7.29 (7.31-7.42) L 02/18/18 01:04 VBG HCO3 14 mEQ/L (22-26) L 02/18/18 01:04 VBG Total CO2 15 mEq/L (21-27) L D 02/18/18 01:04 VBG O2 Saturation 91 % (65-75) H 02/18/18 01:04 VBG Base Excess -11.2 mEq/L (-2.5-2.5) L 02/18/18 01:04 Mixed VBG pCO2 31 mmHg (40-44) L 02/18/18 01:04 Mixed VBG pO2 70 mmHg (35-40) H 02/18/18 01:04 Turbidity < 20 02/17/18 23:39 Sodium 137 mEq/L (135-145) 02/18/18 01:04 Potassium 4.5 mEq/L (3.3-5.0) 02/18/18 01:04 Chloride 107 mEq/L (97-110) 02/18/18 01:04 Carbon Dioxide 16 mEq/l (22-31) L 02/18/18 01:04 Anion Gap 14 mEq/L (8-16) 02/18/18 01:04 BUN 10 mg/dL (7-23) 02/18/18 01:04 Creatinine 0.6 mg/dL (0.6-1.0) 02/18/18 01:04 Estimated GFR > 60 02/18/18 01:04 Glucose 202 mg/dL (70-100) H 02/18/18 01:04 POC Glucose 324 mg/dL (70-100) H 02/17/18 23:32 Calcium 8.5 mg/dL (8.5-10.4) 02/18/18 01:04 Phosphorus 2.2 mg/dL (2.5-4.5) L 02/18/18 01:04 Magnesium 1.6 mg/dL (1.6-2.3) 02/18/18 01:04 Total Bilirubin 1.1 mg/dL (0.1-1.4) 02/18/18 01:04 Conjugated Bilirubin 0.3 mg/dL (0.0-0.5) 02/18/18 01:04 Unconjugated Bilirubin 0.8 mg/dL (0.0-1.1) 02/18/18 01:04 AST 21 IU/L (14-46) 02/18/18 01:04 ALT 29 IU/L (9-52) 02/18/18 01:04 Alkaline Phosphatase 91 IU/L (38-126) 02/18/18 01:04 Total Protein 6.3 g/dL (6.3-8.2) 02/18/18 01:04 Albumin 3.1 g/dL (3.5-5.0) L 02/18/18 01:04 Beta-Hydroxybutyrate 1.68 mmol/L (0.02-0.27) H 02/18/18 01:04 Beta HCG, Qual NEGATIVE 02/17/18 23:39 Specimen Hemolysis 35 02/17/18 23:39 Urine Color PALE YELLOW 02/18/18 00:30 Urine Appearance CLEAR 02/18/18 00:30 Urine pH 5.0 (5.0-7.5) 02/18/18 00:30 Ur Specific Lynn 1.024 (1.002-1.030) 02/18/18 00:30 Urine Protein NEGATIVE (NEGATIVE) 02/18/18 00:30 Urine Ketones 2+ (NEGATIVE) H 02/18/18 00:30 Urine Blood 1+ (NEGATIVE) H 02/18/18 00:30 Urine Nitrate NEGATIVE (NEGATIVE) 02/18/18 00:30 Urine Bilirubin NEGATIVE (NEGATIVE) 02/18/18 00:30 Urine Urobilinogen NEGATIVE EU (0.2-1.0) 02/18/18 00:30 Ur Leukocyte Esterase NEGATIVE (NEGATIVE) 02/18/18 00:30 Urine RBC 1-3 /hpf (0-3) 02/18/18 00:30 Urine WBC 1-3 /hpf (0-3) 02/18/18 00:30 Ur Epithelial Cells TRACE /lpf (NONE-1+) 02/18/18 00:30 Urine Mucus TRACE /lpf (NONE-1+) 02/18/18 00:30 Urine Glucose 3+ (NEGATIVE) H 02/18/18 00:30 Assessment & Plan Assessment: Pleasant 22-year-old female with history DM 1 on a insulin drip who presents emergency department with hyperglycemia. DKA (diabetic ketoacidoses) (Acute) - patient has been receiving IV fluid supplementation as well as initiation on the DKA protocol with insulin drip. Patient's blood sugars and laboratory studies repeated are rapidly correcting. No evidence of an infectious source rather likely related to under dosing of insulin basal rate and bolus. Patient has not made any adjustments to her pump as she has yet to follow up with an pharmacy informatics specialist. Once patient's gap is closed will plan to reinitiate her home insulin pump. Further considerations for re-calculation patient's basal rate pending on evaluation of patient's insulin drip rate on the DKA protocol as well as a.m. A1c that has been ordered. Patient's previous A1c in May despite use of a pump was greater than 10. Patient's basal rate noted in her pump currently is 1.175 units/hour with correction factor of 1:40 and carb adjustment of 1:6. Anion gap metabolic acidosis - related to patient's DKA. Also some component dehydration of lactate was not of sepsis hospital stay but previous he Janet had been elevated in May-likely also contributing. She is receiving appropriate IV fluid hydration and her gap is closing rather quickly. Goal for anion gap of 12. Patient currently of 14. Leukocytosis - likely reactive in setting of DKA and dehydration. Patient is afebrile without complaints of an infectious source. Will plan to repeat CBC later in the morning. Microcytic anemia - patient with previous iron studies showing iron deficiency. She is not currently on any supplementation. Patient without any evidence of active bleeding. She is on OCPs. Her H&H at this time is improved from her last hospital stay. Patient may follow up with her primary care doctor for further evaluation. Thrombocytosis - also likely reactive similarly to leukocytosis on in setting of acute DK and dehydration. Continue with appropriate treatment as noted above and repeat in the morning. Hypoalbuminemia - minimally decreased in likely related to patient's acute and chronic illness. FEN - IV fluids ordered as per protocol. Electrolyte monitoring and replacement also as per protocol. Patient initially started on ice chips only diet but will advance as patient's gap is closing. PPX-SCDs. Holding anticoagulation as patient is low risk and anticipate short hospital stay. Cor status-full Disposition-patient admitted to observation status in the ICU at this time given patient with rapid correction anticipate that she will be back on her pump shortly.
[2018-02-18] MEDS ORDERED: D10W 1,000 ML IV SCH (02:30)
[2018-02-18] MEDS ORDERED: RN:ENTER POTASSIUM ICU PROTOCOL ON WORKLIST MISC ONE (02:30)
[2018-02-18] MEDS ORDERED: INSULIN REGULAR HUMAN 100 UNIT in NS 100 ML IV SCH (02:30)
[2018-02-18] MEDS: POTASSIUM Cl (KCl) 100 ML IV SCH (02:48)
[2018-02-18] MEDS ORDERED: NS 500 ML IV ONE ×2 (03:00→04:00)
[2018-02-18] MEDS ORDERED: NS 1,000 ML IV SCH (05:00)
--- NOTE | 2018-02-18 10:39 | ASMTCMCOM ---
CM Note CM Note Notes: Patient admitted for DKA. She has a history of DM I, treated with insulin pump. She lives independently with her colby Musa. I anticipate that she'll discharge independently when medically stable. Date Signed: 02/18/2018 10:38 AM Electronically Signed By:Nneka Jasso RN
[2018-02-18 11:33] VITALS: BP 123/72
[2018-02-18] MEDS ORDERED: NON-FORMULARY NEW DRUG (Insulin Pump, Patient Own 1 EA) MISC SCH ×2 (12:15→12:30)
--- NOTE | 2018-02-18 14:16 | GDS ---
[f rep st] DISCHARGE SUMMARY DIAGNOSIS: Diabetic ketoacidosis. HOSPITAL COURSE: The patient is a 22-year-old with an insulin pump. She was admitted with DKA. She was placed on insulin protocol, insulin drip, and her gap closed, and her sugars became stabilized. In the morning, she was transitioned back to her insulin pump. We reviewed how to use it, and she w as able to demonstrate understanding. I gave her refills of her lispro so she could refill her insul in pump. Her main issue is social in that she needs to transition her [place] Medicaid to [place] Medicaid and establish care with a primary care provider. We gave her information to do that while she was h ere. It is imperative that she establish care and get her Medicaid set up so that she can see an end ocrinologist to help her adjust her insulin pump. The patient seems to understand this. CONDITION ON DISCHARGE: Fair. DISCHARGE MEDICATIONS: Please see discharge medication form. FOLLOWUP: We gave her information to set up. Follow up with [facility]. /[id number]
[2018-02-18] MEDS ORDERED: SERTRALINE HCL 50 MG TAB PO SCH (21:00)
[2018-02-18] MEDS ORDERED: NORGESTIMATE ETHINYL ESTRADIOL PO SCH ×2 (21:00)
== END 2018-02-18 13:00 | disposition home or self-care (01) ==
LOC: INTOOBSV 02-18 00:55 → OBSVTOIN 02-18 01:22 → F2N 02-18 01:56
PROVIDERS: ADMIT Family Medicine; ATTEND Internal Medicine
DX: E10.10 Type 1 diabetes mellitus with ketoacidosis without coma (principal); D47.3 Essential (hemorrhagic) thrombocythemia; E88.09 Other disorders of plasma-protein metabolism, not elsewhere classified; D72.829 Elevated white blood cell count, unspecified; E86.9 Volume depletion, unspecified; D50.9 Iron deficiency anemia, unspecified; F41.9 Anxiety disorder, unspecified; Z79.4 Long term (current) use of insulin; Z96.41 Presence of insulin pump (external) (internal)
CPT/HCPCS: 82947-PO; G0378; J1815; J3480